=== PATIENT | male | born 1940 | race Caucasian/White ===

== ENCOUNTER 2019-11-04 17:52 | Emergency (ER) | payer MEDICARE ==
[~2019-11-04] VITALS: Ht 167.6 cm; Wt 81.6 kg
[2019-11-04] MEDS ORDERED: FOLI0.4T2 PO (18:25)
[2019-11-04] MEDS ORDERED: LEVO150T8 PO (18:25)
[2019-11-04] MEDS ORDERED: LISI-607 PO (18:25)
[2019-11-04] MEDS ORDERED: METF-442 PO (18:25)
[2019-11-04] MEDS ORDERED: ATOR10TA PO (18:25)
[2019-11-04] MEDS ORDERED: METO-357 PO (18:25)
[2019-11-04] MEDS ORDERED: ASPI81TA31 PO (18:26)
[2019-11-04] MEDS ORDERED: B12 PO (18:28)
[2019-11-04] MEDS ORDERED: CoQ-10 PO (18:28)
[2019-11-04] MEDS ORDERED: D3 PO (18:28)
[2019-11-04] MEDS ORDERED: ONE A DAY VITAMIN PO (18:29)
[2019-11-04] MEDS ORDERED: ROBITUSSIN PO (18:30)
[2019-11-04] MEDS ORDERED: NYQUIL PO (18:30)
--- NOTE | 2019-11-04 18:31 | NUR ---
Dr Washburn is at bedside, MSE in progress
--- NOTE | 2019-11-04 19:00 | NUR ---
hand off and sbar received from outgoing day shift RN PT NAD RA C/O SORETHROAT SPO2 AT 97% KEPT WARM DRY AND COMFORTABLE MONITORED ACCORDINGLY BED AT LOWEST POSITION SIDERAILSX2 UP
--- NOTE | 2019-11-04 19:32 | NUR ---
Patient discharged to home in stable conditon. Written and verbal after care instructions given. Patient verbalizes understanding of instructions. AMBULATORY W/ STABLE GAIT ALL BELONGINGS W/ PT
[2019-11-04 19:48] VITALS: BP 154/80
== END 2019-11-04 19:48 | disposition home or self-care (01) ==
LOC: ER 17:58
DX: R05 Cough (principal); E78.00 Pure hypercholesterolemia, unspecified; E11.9 Type 2 diabetes mellitus without complications; F17.210 Nicotine dependence, cigarettes, uncomplicated; Z79.899 Other long term (current) drug therapy; Z79.82 Long term (current) use of aspirin
CPT/HCPCS: 71045; A4663